=== PATIENT | male | born 1950 | race Caucasian/White ===

== ENCOUNTER 2016-06-30 16:08 | Inpatient (IN) | payer MEDICARE ==
--- NOTE | ~2016-06-30 | HP ---
History And Physical [id number] [place]. [address] NAME: ALE BURROWS : 46 STATUS : ADM IN [facility]#: [id number] AGE: 65 ADM/REG DATE : 06/30/16 MR#: [id number] REPORT SERV DATE: 07/01/16 DICTATED BY: RADHA PARIS DATE: 07/01/16 REPORT STATUS : Draft TRANSCRIBED BY: MODL DATE: 07/01/16 DATE OF ADMISSION: 06/30/2016 REASON FOR ADMISSION: Suspected ischemic stroke, status post tPA. HISTORY OF PRESENT ILLNESS: Mr. Burrows is a 65-year-old gentleman with an underlying history of stroke around 2009 who presented to the emergency department complaining of acute dysarthria with left-sided weakness onset around 2 hours. He specifically complained of word finding difficulty (expressive aphasia) in addition to his left arm and leg weakness. His initial NIH Stroke Scale was 6. He was evaluated by Dr. Dalal from Neurology and was ultimately administered tPA and was started on stroke protocol. He was moved to the CVICU for close monitoring and further neurologic assessment and workup for stroke. PAST MEDICAL HISTORY: Diabetes with an A1c today at 7.4%control with oral medications, dyslipidemia on statin, hypertension, osteoarthritis, GERD, hypogonadism on testosterone replacement, bilateral hearing loss, depression, anxiety, and hypothyroidism. 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 PAST SURGICAL HISTORY: Includes tonsillectomy at age 3 and a Kidner procedure 09/22/[address] Davin Vallejo at [facility]. SOCIAL HISTORY: He is . His is Chanel Burrows and his medical decision maker should he become incapacitated, phone #[phone]. 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 No tobacco or frequent alcohol use. Denies illicit drug use. He is normally able to perform all activities of daily living. FAMILY HISTORY: Parents with diabetes. He has one brother, who is , who also had diabetes. No early strokes in the family. ALLERGIES: NONE. HOME MEDICATIONS: Spironolactone 25 daily, Voltaren extended release 100 mg one half tablet daily, erythromycin 250 mg p.o. twice a day (unclear etiology for use), fenofibrate 160 p.o. daily, lovastatin 20 mg at bedtime, amlodipine 10 mg daily, Starlix 120 mg daily, Coreg 25 q.12, Effexor XR 75 mg daily, Nexium 40 mg daily, hydrochlorothiazide 25 mg daily, metformin 1000 mg twice a day, Plavix 75 mg daily (based on previous stroke evidently), Synthroid 50 mg mcg daily, artificial tears one drop to each eye bilaterally as needed for dry eyes, vitamin D 2000 units daily, fish oil 1000 mg daily, aspirin 81 mg daily. REVIEW OF SYSTEMS: A comprehensive 13-point review of systems was completed and negative except for those points described above in the history of present illness section of dictation. PHYSICAL EXAMINATION: VITAL SIGNS: Stable. He is mildly hypertensive. History And Physical [address] [address] NAME: ALE BURROWS : 46 STATUS : ADM IN [facility]#: [id number] AGE: 65 ADM/REG DATE : 06/30/16 MR#: [id number] REPORT SERV DATE: 07/01/16 DICTATED BY: RADHA PARIS DATE: 07/01/16 REPORT STATUS : Draft TRANSCRIBED BY: STEVEN DATE: 07/01/16 GENERAL: The patient is a male, who is awake, oriented, cooperative, and interactive with my examination. HEENT: Head is atraumatic and normocephalic. Pupils are equal, round, and reactive to light. Extraocular movements are intact. Ears, nose, and mouth are unremarkable. He has moist oral mucosa and fair oral dentition. NECK: Supple without JVD or nuchal rigidity. CARDIOVASCULAR: Clear S1, S2 with brisk cap refill distal extremities. ABDOMEN: Soft, nontender, nondistended. Mildly obese with positive bowel sounds in all four quadrants. No appreciable peritoneal signs. : Normal male anatomy externally. LYMPHATIC: No palpable adenopathy (supraclavicular, submandibular, or axillary). NEUROLOGIC: He is appropriate for me, apparently he had expressive aphasia earlier in the day. Mild left-sided weakness when compared to the right. PSYCHIATRIC: Appropriate to situation. LABORATORY AND DIAGNOSTIC DATA: Personal review of diagnostic workup completed today. Chest x-ray is unremarkable except for a tortuous aorta without evidence of mediastinal widening. A CBC shows normochromic normocytic anemia with a hemoglobin of 13.1, hematocrit 37.8, platelet count is adequate at 290. Coags were unremarkable with a normal INR. Metabolic profile is unremarkable with mild hyperglycemia glucose of 146, otherwise normal. Electrolytes normal. Renal function with a calculated GFR of 71 mL/minute and normal liver function tests. Troponin is negative. CTA head and neck performed as part of stroke protocol was negative for acute infarct or hemorrhage. There was no evidence of focal stenosis or aneurysm. There was no evidence of significant carotid or vertebral artery stenosis. He does have a diminutive right vertebral artery that end in the PICA branch. Brain MRI showed no acute CVA or intracranial pathology, small 2 mm old lacunar infarct with left basal ganglia lentiform nucleus and right thalamus. Glycohemoglobin is 7.4. An EKG shows sinus rhythm, first-degree AV block, 72 beats per minute with a slightly prolonged QT of 438, left bundle branch block and no significant ST elevation or depression by my assessment compared to previous EKGs. IMPRESSION: 1. Suspected acute ischemic cerebrovascular accident, status post tPA in the emergency department earlier today per Dr. Dalal with negative CTA of the head and neck and negative MRI for acute intracranial pathology. 2. Type 2 diabetes mellitus with mild hyperglycemia in the setting of critical illness. 3. History of hypertension. 4. Dyslipidemia. 5. History of hypogonadism. 6. Gastroesophageal reflux disease. 7. Hearing loss bilaterally. 8. Hypothyroidism. 9. Depression. 10.Anxiety. 11.Osteoarthritis. PLAN: Mr. Burrows has already been started on the post tPA stroke protocol. He has been History And Physical [address] [address] NAME: ALE BURROWS : 46 STATUS : ADM IN [facility]#: [id number] AGE: 65 ADM/REG DATE : 06/30/16 MR#: [id number] REPORT SERV DATE: 07/01/16 DICTATED BY: RADHA PARIS DATE: 07/01/16 REPORT STATUS : Draft TRANSCRIBED BY: MODL DATE: 07/01/16 evaluated twice today by Dr. Dalal and we will continue to monitor closely in the intensive care unit tonight. His dysarthria/expressive aphasia has resolved, and he has significant improvement in his left limb use as compared to upon presentation, rule out permissive hypertension, continue statin, perform bedside dysphagia screen, and work him up with echocardiogram for secondary etiologies. DVT prophylaxis has been ordered, and we will check his thyroid function in light of his history of hypothyroidism. He is a full code. Neurology assist is greatly appreciated. Case was discussed with Dr. Dalal in the [facility] DERICK/STEVEN Radha Paris MD / [id number] CC: Mildred Bell M.D.
[2016-06-30 14:22] LABS: BASOPHILS 0.5 %; BASOPHILS ABSOLUTE 0.03 10/3/uL (0.0-0.16); EOSINOPHILS 3.4 %; HEMATOCRIT 37.8 % (40.0-51.0); HEMOGLOBIN 13.1 g/dL (13.6-17.8); IMMATURE GRANULOCYTES 0.5 %; IMMATURE GRANULOCYTES ABSOLUTE 0.03 10/3/uL (0.0-0.11); LYMPHOCYTES 32.7 %; LYMPHOCYTES ABSOLUTE 1.92 10/3/uL (0.67-4.30); MEAN CORPUS HGB CONC 34.7 g/dL (32.0-36.0); MEAN CORPUSCULAR HEMOGLOB 30.4 pg (26.0-34.0); MEAN CORPUSCULAR VOLUME 87.7 fL (80-100); MONOCYTES 12.3 %; MONOCYTES ABSOLUTE 0.72 10/3/uL (0.21-1.20); NEUTROPHILS 50.6 %; NEUTROPHILS ABSOLUTE 2.97 10/3/uL (2.02-8.40); PLATELET COUNT 290 10/3/uL (150-400); RBC DISTRIBUTION WIDTH 12.1 % (12.0-16.0); RED CELL COUNT 4.31 10/6/uL (4.7-6.1); WHITE BLOOD CELLS 5.9 10/3/uL (4.5-10.5)
[2016-06-30 14:23] LABS: MANUAL DIFF NO %
[2016-06-30 14:33] LABS: PROTIME (NOT ORD) 13.1 SEC (12.0-14.5)
[2016-06-30 14:37] LABS: A/G RATIO 1.4 (0.7-1.9); ALBUMIN 4.1 G/DL (3.5-5.0); ALKALINE PHOSPHATASE 60 U/L (45-117); BUN (BLOOD UREA NITROGEN) 17 MG/DL (6-23); CALCIUM, SERUM 9.4 MG/DL (8.5-10.4); CHLORIDE, SERUM 100 MMOL/L (96-112); CO2 (CARBON DIOXIDE) 26 MMOL/L (24-34); CREATININE 1.07 MG/DL (0.70-1.30); GFR AFRICAN AMERICAN 83 ML/MIN (>=60); GFR NON AFRICAN AMERICAN 71 ML/MIN (>=60); GLUCOSE, SERUM 146 MG/DL (60-99); POTASSIUM, SERUM 3.9 MMOL/L (3.5-5.3); SGOT(AST) 30 U/L (5-40); SGPT(ALT) 61 U/L (5-65); SODIUM, SERUM 139 MMOL/L (135-148); TOTAL BILIRUBIN 0.3 MG/DL (0-1.2); TOTAL PROTEIN 7.1 G/DL (6.0-8.5); TROPONIN I <0.02 NG/ML (<0.05)
[~2016-06-30 16:08] MED LIST: ANDROGEL1.25 GM TOP; ASAB PO; AVAP150 PO; AVIANE PO; CATAFLAM50 MG PO; COREG25; COREG25 PO; EFFEXOR XR150 MG PO; EFFEXXR75 PO; ERY-TAB250 MG PO; FISH-EPA1000 MG PO; FORTAMET1000 MG PO; GLUCPH PO; HALF81 PO; HCTZ25B PO; HYDROCHLOROT25 MG PO; LOFIB160 PO; MEVACOR PO; NEXIUM40 PO; NORV10 PO; PLAVIX PO; PROTONIX20 MG PO; SPIRO25 PO; STARLIX120; STARLIX120 PO; SYN.05 PO; TEARS PLUS OPH; TRICOR145 PO; VITAMIN D2000 UNIT PO; VOLTXR100 PO; [UNRECOGNIZED DRUG - REMARK]
[2016-06-30 20:28] LABS: BASOPHILS 0.3 %; BASOPHILS ABSOLUTE 0.02 10/3/uL (0.0-0.16); EOSINOPHILS 2.8 %; EOSINOPHILS ABSOLUTE 0.16 10/3/uL (0.0-0.53); HEMATOCRIT 36.2 % (40.0-51.0); HEMOGLOBIN 12.4 g/dL (13.6-17.8); IMMATURE GRANULOCYTES 0.3 %; IMMATURE GRANULOCYTES ABSOLUTE 0.02 10/3/uL (0.0-0.11); LYMPHOCYTES ABSOLUTE 2.08 10/3/uL (0.67-4.30); MEAN CORPUS HGB CONC 34.3 g/dL (32.0-36.0); MEAN CORPUSCULAR HEMOGLOB 29.8 pg (26.0-34.0); MEAN PLATELET VOLUME 9.2 fL (9.2-13.0); MONOCYTES 10.2 %; MONOCYTES ABSOLUTE 0.59 10/3/uL (0.21-1.20); NEUTROPHILS 50.4 %; NEUTROPHILS ABSOLUTE 2.91 10/3/uL (2.02-8.40); PLATELET COUNT 282 10/3/uL (150-400); RBC DISTRIBUTION WIDTH 12.4 % (12.0-16.0); RED CELL COUNT 4.16 10/6/uL (4.7-6.1); WHITE BLOOD CELLS 5.8 10/3/uL (4.5-10.5)
[2016-06-30 20:35] LABS: MANUAL DIFF NO %; PARTIAL THROMBO TIME 30.3 SEC (22.5-37.2); PROTIME (NOT ORD) 13.3 SEC (12.0-14.5)
[2016-06-30 21:41] LABS: A/G RATIO 1.5 (0.7-1.9); ALBUMIN 4.2 G/DL (3.5-5.0); ALKALINE PHOSPHATASE 55 U/L (45-117); BUN (BLOOD UREA NITROGEN) 17 MG/DL (6-23); CALCIUM, SERUM 9.2 MG/DL (8.5-10.4); CHLORIDE, SERUM 101 MMOL/L (96-112); CHOLESTEROL 166 MG/DL (< 200); CO2 (CARBON DIOXIDE) 26 MMOL/L (24-34); CREATININE 0.93 MG/DL (0.70-1.30); GFR AFRICAN AMERICAN 98 ML/MIN (>=60); GFR NON AFRICAN AMERICAN 85 ML/MIN (>=60); GLOBULIN 2.8 G/DL (2.5-4.1); POTASSIUM, SERUM 3.7 MMOL/L (3.5-5.3); SGOT(AST) 27 U/L (5-40); SGPT(ALT) 60 U/L (5-65); SODIUM, SERUM 139 MMOL/L (135-148); TOTAL BILIRUBIN 0.3 MG/DL (0-1.2); TROPONIN I <0.02 NG/ML (<0.05)
[2016-06-30 21:42] LABS: CHOL/HDL RATIO(NOT ORDER) 3.8 (0-5); CK-MB 2.6 NG/ML; CPK 117 U/L (0-200); FOLATE 38.1 NG/ML (>5.2); GLUCOSE, SERUM 115 MG/DL (60-99); HDL CHOLESTEROL 44 MG/DL (> 39); LDL CHOLESTEROL 74 MG/DL (< 130); NON-HDL CHOLESTEROL 122 MG/DL (< 160); TRIGLYCERIDE 241 MG/DL (< 150)
[2016-07-01 04:09] LABS: TROPONIN I <0.02 NG/ML (<0.05)
[2016-07-01 04:31] LABS: CPK 111 U/L (0-200)
[2016-07-01 04:32] LABS: CK-MB 2.3 NG/ML
[2016-07-01 11:42] LABS: CK-MB 2.3 NG/ML; CPK 113 U/L (0-200); TROPONIN I <0.02 NG/ML (<0.05)
[2016-07-02 03:41] LABS: BASOPHILS 0.4 %; BASOPHILS ABSOLUTE 0.03 10/3/uL (0.0-0.16); EOSINOPHILS ABSOLUTE 0.15 10/3/uL (0.0-0.53); HEMATOCRIT 39.1 % (40.0-51.0); HEMOGLOBIN 13.6 g/dL (13.6-17.8); IMMATURE GRANULOCYTES 0.1 %; IMMATURE GRANULOCYTES ABSOLUTE 0.01 10/3/uL (0.0-0.11); LYMPHOCYTES 27.9 %; LYMPHOCYTES ABSOLUTE 2.09 10/3/uL (0.67-4.30); MEAN CORPUS HGB CONC 34.8 g/dL (32.0-36.0); MEAN CORPUSCULAR HEMOGLOB 30.2 pg (26.0-34.0); MEAN CORPUSCULAR VOLUME 86.7 fL (80-100); MEAN PLATELET VOLUME 9.4 fL (9.2-13.0); MONOCYTES 12.7 %; MONOCYTES ABSOLUTE 0.95 10/3/uL (0.21-1.20); NEUTROPHILS 56.9 %; NEUTROPHILS ABSOLUTE 4.26 10/3/uL (2.02-8.40); PLATELET COUNT 303 10/3/uL (150-400); RBC DISTRIBUTION WIDTH 12.4 % (12.0-16.0); RED CELL COUNT 4.51 10/6/uL (4.7-6.1); WHITE BLOOD CELLS 7.5 10/3/uL (4.5-10.5)
[2016-07-02 03:44] LABS: MANUAL DIFF NO %
[2016-07-02 03:53] LABS: ALBUMIN 4.3 G/DL (3.5-5.0); BUN (BLOOD UREA NITROGEN) 16 MG/DL (6-23); CALCIUM, SERUM 9.4 MG/DL (8.5-10.4); CHLORIDE, SERUM 99 MMOL/L (96-112); CO2 (CARBON DIOXIDE) 25 MMOL/L (24-34); CREATININE 0.98 MG/DL (0.70-1.30); GFR AFRICAN AMERICAN 92 ML/MIN (>=60); GFR NON AFRICAN AMERICAN 79 ML/MIN (>=60); POTASSIUM, SERUM 3.6 MMOL/L (3.5-5.3); SODIUM, SERUM 138 MMOL/L (135-148)
[2016-07-02 04:03] LABS: GLUCOSE, SERUM 172 MG/DL (60-99)
[2016-07-02] MEDS ORDERED: ASA5GR PO (16:19)
[2016-07-04 09:18] LABS: CREATININE 0.9 MG/DL (0.70-1.30)
== END 2016-07-02 17:20 | disposition home or self-care (01) | DRG 63 ==
LOC: ER 16:08 → CVICU 16:17
PROVIDERS: Emergency Medicine; Internal Medicine Pulmonary Disease
DX: I63.9 Cerebral infarction, unspecified (principal); I10 Essential (primary) hypertension; E11.9 Type 2 diabetes mellitus without complications; R47.1 Dysarthria and anarthria; R53.1 Weakness; E78.5 Hyperlipidemia, unspecified; M19.90 Unspecified osteoarthritis, unspecified site; K21.9 Gastro-esophageal reflux disease without esophagitis; E29.1 Testicular hypofunction; F41.9 Anxiety disorder, unspecified; F32.9 Major depressive disorder, single episode, unspecified; E03.9 Hypothyroidism, unspecified; Z79.84 Long term (current) use of oral hypoglycemic drugs; Z86.73 Personal history of transient ischemic attack (TIA), and cerebral infarction without residual deficits; Z79.02 Long term (current) use of antithrombotics/antiplatelets; Z79.899 Other long term (current) drug therapy; Z28.21 Immunization not carried out because of patient refusal
CPT/HCPCS: 36415; 70450; 70496; 70498; 70551-52; 71010; 80053; 80061; 80069; 81001; 82306; 82550; 82553; 82607; 82746; 82962; 83036; 83735; 84443; 84484; 85025; 85610; 85730; 86850; 86900; 86901; 87641; 93005; 99291; A9270-GY; C8929; J2997; Q9957